=== PATIENT | female | born 1965 | race Caucasian/White ===

== ENCOUNTER → 2016-07-27 | Outpatient (CLI) | payer OTHER ==
--- NOTE | 2016-07-27 15:28 | REPMRS ---
Patient History The patient states she has not had a clinical breast exam in over a year. No known family history of cancer. Took hormonal contraceptives for 1 year 6 months. Digital Mammo Screening Bilat: July 27, 2016 - Exam #: [id number] Bilateral CC and MLO view(s) were taken. Technologist: Guerita Calderon, Technologist Prior study comparison: April 25, 2015, digital bilateral screening mammo, performed at [facility]. June 25, 2013, bilateral bilat screen digital mammo, performed at [facility] ([facility] FINDINGS: There are scattered fibroglandular densities. There is a moderate amount of residual fibroglandular tissue which is fairly symmetric. There is no interval development of dominant mass, architectural distortion, or clustered microcalcification typical of malignancy. There has been no change in the appearance of the mammogram from the prior studies. ASSESSMENT: BI-RADS/ACR category 1 mammogram. Negative. Recommendation Routine screening mammogram of both breasts in 1 year (for women over age 40). This mammogram was interpreted with the aid of an FDA-approved computer-aided dectection system. Electronically Signed By: Jered Vazquez MD 07/27/16 [id number]
== END ==
LOC: M RAD 15:06
PROVIDERS: ATTEND Family Medicine
DX: Z12.31 Encounter for screening mammogram for malignant neoplasm of breast (principal)

== ENCOUNTER 2017-07-31 07:19 | Day surgery (SDC) | payer OTHER ==
[2017-07-31] MEDS: NS 1,000 ML IV (07:30)
[2017-07-31] MEDS ORDERED: PROPOFOL 200 MG/20 ML VIAL As Ordered ×2 (08:45→09:02)
== END 2017-07-31 09:45 | disposition home or self-care (01) ==
LOC: M OPP 07:19
DX: Z12.11 Encounter for screening for malignant neoplasm of colon (principal); Z80.8 Family history of malignant neoplasm of other organs or systems
CPT/HCPCS: G0121